=== PATIENT | male | born 1980 | race Caucasian/White ===

== ENCOUNTER 2017-04-30 19:02 | Emergency (ER) | payer BC ==
[~2017-04-30] VITALS: Ht 175.3 cm; Wt 124.0 kg
[~2017-04-30 19:02] MED LIST: DOXY100T PO; LORT5TAB PO; MUSCLE RELAXOR; VENTAER INH
[2017-04-30 19:21] VITALS: BP 167/95; PULSE 80; RESP 16; TEMP 98.2; O2SAT 97
[2017-04-30] MEDS ORDERED: FLUO0.013 TOPICAL (20:04)
--- NOTE | 2017-04-30 20:06 | PD ---
HPI . Dermatitis Chief Complaint: Skin Problem Time Seen by Provider: 19:39 Travel History International Travel<30 days: Yes Contact w/Intl Traveler<30days: Yes Name of Country Traveled to: [place] Traveled to known affect area: No History of Present Illness HPI 36-year-old male patient presents emergency department for evaluation of 2 small areas of skin irritation 1 behind his left ear and 1 on his left facial cheek. Patient states they have been there for a couple days. He believes he came in contact with poison sumac behind his left ear. When the skin irritation and initially started it was itchy but after scratching it it has become painful at times. The area on his left cheek populated secondary to the area behind his left ear. Patient denies any fevers, chills, malaise, nausea, vomiting, shortness breath or lightheadedness. Patient denies any major medical history and does not take any daily medication. Patient has no known allergies. PFSH Past Medical History Diminished Hearing: No Musculoskeletal: Yes (chronic neck and back pain) Immunizations Current: Yes Tetanus Vaccination: Unknown Influenza Vaccination: No Social History Alcohol Use: Yes (OCC) Tobacco Use: Yes (1PK) Substance Use: No Allergies-Medications (Allergen,Severity, Reaction): Coded Allergies: No Known Allergies (Verified , 04/30/17) Reported Meds & Prescriptions Reported Meds & Active Scripts Active No Active Prescriptions or Reported Medications Review of Systems Except as stated in HPI: all other systems reviewed are Neg Physical Exam Narrative GENERAL: Well-nourished, well-developed pleasant 36-year-old male patient in no acute distress. Nontoxic appearing. SKIN: 1 cm 1 cm area of erythema behind the left ear. 0.5 cm 0.5 cm area of erythema on the left facial cheek. No surrounding erythema or edema noted. No fluctuation or induration noted. HEAD: Normocephalic. Atraumatic. EYES: No scleral icterus. No injection or drainage. NECK: Supple, trachea midline. No JVD or lymphadenopathy. CARDIOVASCULAR: Regular rate and rhythm without murmurs, gallops, or rubs. RESPIRATORY: Breath sounds equal bilaterally. No accessory muscle use. GASTROINTESTINAL: Abdomen soft, non-tender, nondistended. MUSCULOSKELETAL: No cyanosis, or edema. BACK: Nontender without obvious deformity. No CVA tenderness. Data Data Last Documented VS Vital Signs Date Time Temp Pulse Resp B/P (MAP) Pulse Ox O2 Delivery O2 Flow Rate FiO2 04/30/17 19:21 98.2 80 16 167/95 (119) 97 MDM Medical Decision Making Medical Screen Exam Complete: Yes Emergency Medical Condition: Yes Differential Diagnosis Differential diagnosis include but not limited to allergic dermatitis, contact dermatitis, cellulitis Narrative Course 36-year-old male patient presents emergency department for evaluation of 2 small areas of skin irritation behind the left ear and on the left facial cheek. Patient denies any fevers, chills, malaise. Patient has no major medical history does not take any daily medication. There is no signs of cellulitis or need for antibiotics at this time. Patient will be discharged home with prescription for topical steroid and instructions to keep the areas clean and dry. Patient will be given instructions return to the emergency department with any signs of infection or cellulitis that appear secondary to irritation. Diagnosis Primary Impression: Contact dermatitis Qualified Codes: L25.9 - Unspecified contact dermatitis, unspecified cause Patient Instructions: Contact Dermatitis (ED), General Instructions Additional Instructions: Please return to emergency department if your symptoms return or worsen. Follow up with your primary care provider. Take medications as prescribed. Keep areas of skin irritation clean and dry. Med/Other Pt SpecificInfo: Prescription(s) given Scripts Fluocinolone Topical (Fluocinolone Topical) 0.01% Cream 1 APPLIC TOPICAL DAILY for 5 Days, #15 GM 0 Refills Prov: TanmayKathy WILKINS 04/30/17 Disposition: 01 DISCHARGE HOME Condition: Stable Kathy Donato Apr 30, 2017 20:06
== END 2017-04-30 20:15 | disposition home or self-care (01) ==
LOC: PHEFT 19:02
DX: L25.9 Unspecified contact dermatitis, unspecified cause (principal)
CPT/HCPCS: 99283

== ENCOUNTER 2017-05-21 09:31 | Emergency (ER) | payer BC ==
[~2017-05-21] VITALS: Ht 175.3 cm; Wt 122.6 kg
[~2017-05-21 09:31] MED LIST changes: -DOXY100T PO; +FLUO0.013 TOPICAL; -LORT5TAB PO; -MUSCLE RELAXOR; -VENTAER INH
[2017-05-21 09:48] VITALS: BP 135/81; PULSE 87; RESP 16; TEMP 98.1; O2SAT 96
[2017-05-21] MEDS ORDERED: ALBUAER3 INH (10:21)
[2017-05-21] MEDS ORDERED: AZIT250T3 PO (10:21)
[2017-05-21] MEDS ORDERED: BENZ100 PO (10:21)
--- NOTE | 2017-05-21 10:21 | PD ---
HPI Chief Complaint: Cold / Flu Symptoms Time Seen by Provider: 10:07 Travel History International Travel<30 days: No Contact w/Intl Traveler<30days: No Traveled to known affect area: No History of Present Illness HPI The patient's 37 years old. He has had a cough for the past 3 days. This morning he developed a trace amount of hemoptysis. No massive months. No chest pain. He denies shortness of breath. Subjective fever is reported. He denies similar episodes of hemoptysis. He does smoke tobacco. Severity moderate. no modifying factor. PFSH Past Medical History Medical History: Denies Significant Hx Diminished Hearing: No Musculoskeletal: Yes (chronic neck and back pain) Respiratory: Yes (asthma) Immunizations Current: Yes Social History Alcohol Use: Yes (COUPLE TIMES PER WEEK) Tobacco Use: Yes (1PK) Substance Use: No Allergies-Medications (Allergen,Severity, Reaction): Coded Allergies: No Known Allergies (Unverified , 05/21/17) Reported Meds & Prescriptions Reported Meds & Active Scripts Active Tessalon Perles (Benzonatate) 100 Mg Cap 100 Mg PO TID PRN Proair Hfa 8.5 GM Inh (Albuterol Sulfate) 90 Mcg/Act Aer 2 Puff INH Q6H PRN 108 mcg/actuation Azithromycin 250 Mg Tab 250 Mg PO DIRECTED Take 2 tabs (500 mg) on day 1 then 1 tab daily x 4 days. Review of Systems Except as stated in HPI: all other systems reviewed are Neg General / Constitutional: No: Fever, Chills Respiratory: Positive: Cough Physical Exam Narrative GENERAL: 37-year-old male no acute distress pleasant SKIN: Focused skin assessment warm/dry. HEAD: Atraumatic. Normocephalic. EYES: Pupils equal and round. No scleral icterus. No injection or drainage. ENT: No nasal bleeding or discharge. Mucous membranes pink and moist. Posterior oropharynx widely patent no blood or evidence of infectious process. NECK: Trachea midline. No JVD. CARDIOVASCULAR: Regular rate and rhythm. No murmur appreciated. RESPIRATORY: No accessory muscle use. Clear to auscultation. Breath sounds equal bilaterally. GASTROINTESTINAL: Abdomen soft, non-tender, nondistended. Hepatic and splenic margins not palpable. MUSCULOSKELETAL: No obvious deformities. No clubbing. No cyanosis. No edema. NEUROLOGICAL: Awake and alert. No obvious cranial nerve deficits. Motor grossly within normal limits. Normal speech. PSYCHIATRIC: Appropriate mood and affect; insight and judgment normal. Data Data Last Documented VS Vital Signs Date Time Temp Pulse Resp B/P (MAP) Pulse Ox O2 Delivery O2 Flow Rate FiO2 05/21/17 09:48 98.1 87 16 135/81 (99) 96 Orders Orders Ed Discharge Order (05/21/17 10:18) MDM Medical Decision Making Medical Screen Exam Complete: Yes Emergency Medical Condition: Yes Medical Record Reviewed: Yes Differential Diagnosis bronchitis, massive hemoptysis, lung cancer Narrative Course Patient is well-appearing and is considered extremely unlikely that he has a lung mass at this stage however given the fact that he is a smoker follow-up should be obtained in about 3 weeks on the bronchitis has resolved. Prescriptions as below for the bronchitis. With regard to the need to do a workup for an acute emergency the patient has normal vital signs and minute amount of blood in sputum at this point is unlikely to be further explained by routine emergency Department imaging and will therefore be deferred. Pt is agreeable with. Pt has follow up and has verbalized intent to follow up as discussed. Diagnosis Primary Impression: Hemoptysis Additional Impression: Bronchitis Referrals: Primary Care Physician PLEASE FOLLOW UP IN 3-4 WEEKS WE DISCUSSSED. Additional Instructions: You have a choice when it comes to health care, and we are glad that you chose [facility]. Hopefully, we have met your expectations on today's visit. You are welcome to return to [facility] at any time, as we are committed to meeting the health care needs of our community. FOLLOW UP WITH DR ESCALERA IN 3-4 WEEKS FOR EVALUATION OF BLOOD IN SPUTUM. SHE WILL LIKELY WANT AN XRAY OF THE CHEST OR POTENTIALLY A CT OF THE CHEST. IF YOU DEVELOP A LARGE AMOUNT OF BLOOD WITH COUGHING, PLEASE RETURN TO THE ER WITHOUT DELAY. PLEASE TRY TO QUIT SMOKING. Med/Other Pt SpecificInfo: Prescription(s) given Scripts Benzonatate (Tessalon Perles) 100 Mg Cap 100 MG PO TID Y for COUGH, #12 CAP 0 Refills Prov: Kip Gil MD 05/21/17 Albuterol 8.5 GM Inh (Proair Hfa 8.5 GM Inh) 90 Mcg/Act Aer 2 PUFF INH Q6H Y for SHORTNESS OF BREATH, #1 INHALER 0 Refills 108 mcg/actuation Prov: iKp Gil MD 05/21/17 Azithromycin (Azithromycin) 250 Mg Tab 250 MG PO DIRECTED for Infection, #6 TAB 0 Refills Take 2 tabs (500 mg) on day 1 then 1 tab daily x 4 days. Prov: Kip Gil MD 05/21/17 Disposition: 01 DISCHARGE HOME Condition: Stable Kip Gil MD May 21, 2017 10:21
== END 2017-05-21 10:26 | disposition home or self-care (01) ==
LOC: PHEFT 09:31
DX: R04.2 Hemoptysis (principal); J40 Bronchitis, not specified as acute or chronic; F17.210 Nicotine dependence, cigarettes, uncomplicated
CPT/HCPCS: 99284